=== PATIENT | female | born 1990 | race Caucasian/White ===

== ENCOUNTER 2019-02-10 21:10 | Emergency (ER) | payer OTHER ==
[~2019-02-10] VITALS: Ht 165.1 cm; Wt 99.8 kg
[2019-02-11] MEDS ORDERED: PHENAGIL CH TA1 EACH PO (00:24)
[2019-02-11] MEDS ORDERED: ZOFRAN4 MG PO (00:24)
== END 2019-02-11 00:37 | disposition home or self-care (01) ==
LOC: ER 21:10
DX: K52.9 Noninfective gastroenteritis and colitis, unspecified (principal)

== ENCOUNTER → 2020-01-08 | Emergency (ER) | payer OTHER ==
[~2020-01-08] VITALS: Ht 165.1 cm; Wt 104.3 kg
[~2020-01-08] MED LIST: ACETAMINOPHEN650 M2 PO; MEDROLPACK PO; PHENAGIL CH TA1 EACH PO; PROAIR HFA8.5 GM IH; VITAMIN C WIT1000 MG PO; VITAMIN D3-ALO1 EACH PO; ZOFRAN4 MG PO
== END | disposition home or self-care (01) ==
LOC: ER 08:04
DX: B34.9 Viral infection, unspecified (principal); Z03.818 Encounter for observation for suspected exposure to other biological agents ruled out

== ENCOUNTER 2020-01-12 02:20 | Emergency (ER) | payer OTHER ==
[~2020-01-12] VITALS: Ht 165.1 cm; Wt 104.3 kg
== END 2020-01-12 05:31 | disposition home or self-care (01) ==
LOC: ER 02:20
DX: R21 Rash and other nonspecific skin eruption (principal)